=== PATIENT | female | born 1975 | race Caucasian/White ===

== ENCOUNTER 2019-03-18 21:16 | Emergency (ER) | payer MEDICAID ==
[~2019-03-18] VITALS: Ht 160 cm; Wt 95.5 kg
[~2019-03-18 21:16] MED LIST: AMLO5TAB9 PO; GUAI237L21 PO; LEVO250 PO; METR500 PO
[2019-03-18] MEDS ORDERED: LISI-657 PO (21:26)
[2019-03-18 22:14] VITALS: BP 145/89
[2019-03-18] MEDS: CIPROFLOXACIN HCL 0.2%/HYDROCORT 1% 10 ML OTIC SUSPENSION AS ONE (22:14)
== END 2019-03-18 22:25 | disposition home or self-care (01) ==
LOC: EMS 21:17
DX: H60.92 Unspecified otitis externa, left ear (principal); I10 Essential (primary) hypertension; Z90.49 Acquired absence of other specified parts of digestive tract

== ENCOUNTER 2021-08-10 10:46 | Emergency (ER) | payer MEDICAID ==
[~2021-08-10] VITALS: Ht 160 cm; Wt 70.5 kg
[2021-08-10] VITALS (8 sets, daily range): BP systolic 116–145; BP diastolic 63–95
[~2021-08-10 10:46] MED LIST changes: +AMLO-257 PO; -AMLO5TAB9 PO; -GUAI237L21 PO; -LEVO250 PO; -METR500 PO; +SEVE0.8P6 PO
[2021-08-10 13:08] LABS: BASOPHILS % (AUTO) 0.6 % (0.0-2.0); EOSINOPHILS % (AUTO) 3.5 % (1.0-6.0); HEMATOCRIT 37.4 % (36-46); HEMOGLOBIN 12.7 g/dL (12.0-16.0); LYMPHOCYTES # (AUTO) 2.4 K/uL (1.0-4.8); LYMPHOCYTES % (AUTO) 30.7 % (22.0-44.0); MEAN CORPUSCULAR HEMOGLOBIN 29.8 pg (26.0-34.0); MEAN CORPUSCULAR HGB CONC 33.9 G/dL (31.0-37.0); MEAN CORPUSCULAR VOLUME 88 fL (80-100); MONOCYTES # (AUTO) 0.4 K/uL (0.1-1.0); MONOCYTES % (AUTO) 5.1 % (2.0-9.0); NEUTROPHILS # (AUTO) 4.6 K/uL (1.8-7.7); NEUTROPHILS % (AUTO) 60.1 % (40.0-70.0); PLATELET COUNT (AUTO) 254 K/uL (150-450); RED BLOOD CELL COUNT(AUTO) 4.25 MIL/uL (4.00-5.20)
[2021-08-10 13:53] LABS: CALCIUM, TOTAL 8.7 mg/dL (8.8-10.5); CREATININE 8.02 mg/dL (0.60-1.30)
[2021-08-10 14:00] LABS: ALBUMIN 3.1 g/dL (3.4-5.0); BILIRUBIN,TOTAL 0.5 mg/dL (0.1-1.0); TOTAL PROTEIN, SERUM 7.5 g/dL (6.4-8.2)
[2021-08-10 14:02] LABS: LACTIC ACID 0.5 mmol/L (0.4-2.0)
[2021-08-10 22:58] LABS: COVID AG,FIA SOURCE NASOPHARYNGEAL
== END 2021-08-10 22:30 | disposition home or self-care (01) ==
LOC: EMS 11:01
DX: U07.1 COVID-19 (principal); I12.0 Hypertensive chronic kidney disease with stage 5 chronic kidney disease or end stage renal disease; N18.6 End stage renal disease; Z99.2 Dependence on renal dialysis; Z90.89 Acquired absence of other organs
CPT/HCPCS: 36415; 71045; 80053; 83605; 83690; 83880; 84484; 85025; 87340; 87426; 99285; U0003; 90935